=== PATIENT | male | born 1985 | race Caucasian/White ===

== ENCOUNTER 2019-07-30 17:53 | Inpatient (IN) ==
--- NOTE | 2019-07-30 18:19 | Emergency Department Note ---
Impression & Plan Homicidal ideation, Suicidal ideation ED Provider Note NAME: ZAHIDA CALIXTO AGE: 34 SEX: M : 1985 ARRIVES VIA: Ambulance INFORMANT: [Patient][ems, nursing] ED PROVIDER(S): [Balaji Ward MD] CHIEF COMPLAINT: Homicidal HISTORY OF PRESENT ILLNESS: The patient is a 34-year-old male with a mental health history. He admits he has not taken any of his meds in around 6 months or so since the office in [facility]. The patient does have a case management director for his psychiatric issues. The patient states that today, he posted on Facebook that he was looki ng for a gun. He wants to kill a friend that he is very mad at. He also states he is thinking about killing himself because, he was just told he has bedbugs and he has to throw out a lot of his belongings. The patient admits that he was suicidal once before many years ago, he states that he was never hospitalized from a psychiatric standpoint. The patient states that there have been no other stressors that he can think of. There has been no cough or cold or congestion, no urinary complaints. The patient states that his medical health is good. The patient was brought by EMS and police, apparently his aunt saw the post on Facebook and called. The patient was seen by the mobile psychiatry services as an outpatient and apparently, hospitalization was felt warranted. Of note, the patient is currently voluntary. REVIEW OF SYSTEMS: See HPI for pertinent positives and negatives. A total of ten systems were reviewed and were otherwise negative. PMHx/PSHx: See Below SOCIAL HISTORY: See Below. PHYSICAL EXAM: GENERAL: Patient is in no acute distress. HEENT: No acute trauma, normocephalic atraumatic, mucous membranes moist, no nasal congestion, no scleral icterus. NECK: No stridor, no adenopathy, no meningismus, trachea is midline. LUNGS: Clear to auscultation bilaterally, no wheeze, no rhonchi, breath sounds equal. HEART: Without murmurs gallops or rubs, regular rate and rhythm. ABDOMEN: Soft, nontender, bowel sounds positive, no hernias, no peritonitis. EXTREMITIES: No cyanosis or edema, full range of motion of all the joints without pain or difficulty, no signs for acute trauma. NEUROLOGIC: Oriented x 3, no acute motor or sensory deficits, no focal weakness. SKIN: No rash, no jaundice, no diaphoresis. Psychiatric: Cooperative, voluntary, admits to suicidal homicidal ideation. Admits to asking for a gun on Facebook earlier. DIFFERENTIAL DIAGNOSIS: Mood disorder, infection, hypoglycemia, suicidal, homicidal, electrolyte abnormalities, cardiac sources, intracerebral event, toxicologic, trauma, neurologic, as well as other pathologies. EMERGENCY DEPARTMENT COURSE/PROCEDURES: MEDICAL DECISION MAKING: There is no leukocytosis or concerning anemia. No significant electrolyte abnormality or kidney failure. There was no liver enzyme elevation. The patien t appeared to be in a euthyroid state. Urinalysis did not show infection. Aspirin, Tylenol and alcohol levels were undetectable. Urine tox was negative. On exam, the patient was cooperative. He did admit to asking for a gun earlier. He admits that he was feeling suicidal and homicidal. The patient was felt medically clear. He was seen by psychiatry case management. The patient has done well here in the ED. He has remained cooperative. He has remained voluntary. He was seen by our psychiatry services, 3 S. He has been accepted to their floor as a voluntary psychiatric admission. 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 Beliefs That Will Affect Care: None Feels Safe at Home: Yes Smoking Status: Never smoker Allergies Allergies Allergy/AdvReac Type Severity Reaction Status Date / Time No Known Allergies Allergy Unverified 07/30/19 18:29 Home Meds Home Medications Medication Instructions Recorded Confirmed No Known Home Medications 07/30/19 07/30/19 Results & Data (ED) Vital Signs Vital Signs - 24 hr 07/30/19 18:17 Temperature 36.4 C L Temperature Source Oral Pulse Rate 80 Respiratory Rate 18 Respiratory Effort / Characteristics Non-Labored Respiratory Depth Normal Respiratory Pattern Regular Blood Pressure 132/88 Blood Pressure Mean 102 Blood Pressure Position Sitting Pulse Oximetry 96 Oxygen Delivery Method Room Air Sepsis Recent Fever Within 48 Hours No Sepsis New/Unexplained Change in Mental Status No Sepsis Action Taken by Nursing No Action Required Home Medications Current Medication List: was personally reviewed by me Laboratory Data Attestation: I reviewed the patient's lab results. Result diagrams: 07/30/19 18:29 07/30/19 18:29 Lab Results 07/30/19 07/30/19 07/30/19 Range/Units 18:15 18:15 18:29 WBC 6.11 (4.8-10.8) K/uL RBC 4.89 (4.7-6.1) M/uL Hgb 14.1 (14.0-18.0) g/dL Hct 40.2 L (42-52) % MCV 82.2 (80-100) fL MCH 28.8 (25-34) pg MCHC 35.1 (32-36) g/dL RDW Std Deviation 37.8 (36.4-46.3) fL RDW Coeff of Bakari 12.6 (11.5-14.5) % Plt Count 227 (130-400) K/uL MPV 10.6 H (7.4-10.4) fL Immature Gran % (Auto) 0.0 % Neut % (Auto) 67.3 % Lymph % (Auto) 25.4 % [place] % (Auto) 6.5 % Eos % (Auto) 0.5 % Baso % (Auto) 0.3 % Immature Gran # (Auto) 0.00 (0.00-0.02) K/uL Neut # (Auto) 4.11 (1.4-6.5) K/uL Lymph # (Auto) 1.55 (1.2-3.4) K/uL [place] # (Auto) 0.40 (0.11-0.59) K/uL Eos # (Auto) 0.03 (0-0.5) K/uL Baso # (Auto) 0.02 (0-0.2) K/uL Sodium (136-145) mmol/L Potassium (3.5-5.1) mmol/L Chloride (98-107) mmol/L Carbon Dioxide (21-32) mmol/L Anion Gap (3-11) BUN (7-18) mg/dl Creatinine (0.6-1.4) mg/dl Est Cr Clr Drug Dosing ml/min Est GFR ( Amer) Est GFR (Non-Af Amer) BUN/Creatinine Ratio (10-20) Glucose (70-99) mg/dl Calcium (8.5-10.1) mg/dl Total Bilirubin (0.2-1) mg/dl AST (15-37) U/L ALT (12-78) U/L Alkaline Phosphatase (45-117) U/L Total Protein (6.4-8.2) gm/dl Albumin (3.4-5.0) gm/dl Globulin (2.5-4.0) gm/dl Albumin/Globulin Ratio (0.9-2) TSH (0.300-4.500) uIu/ml Urine Color Yellow Urine Appearance Clear (Clear) Urine pH 7.0 (4.5-7.5) Ur Specific [place] 1.016 (1.000-1.030) Urine Protein Negative (Negative) Urine Glucose (UA) Negative (Negative) Urine Ketones Negative (Negative) Urine Blood Negative (Negative) Urine Nitrite Negative (Negative) Urine Bilirubin Negative (Negative) Urine Urobilinogen Negative (Negative) Ur Leukocyte Esterase Negative (Negative) Salicylates (2.8-20) mg/dl Urine Opiates Screen Neg (Neg) Ur Methadone, Qual Neg (Neg) Acetaminophen (10-30) ug/ml Urine Barbiturates Neg (Neg) Ur Phencyclidine (PCP) Neg (Neg) U Amphetamin/Meth Scrn Neg (Neg) MDMA (Ecstasy) Screen Neg (Neg) U Benzodiazepines Scrn Neg (Neg) Ur Cocaine Metabolite Neg (Neg) U Marijuana (THC) Screen Neg (Neg) Ethyl Alcohol mg/dL (0-3) mg/dl 07/30/19 07/30/19 07/30/19 Range/Units 18:29 18:29 18:29 WBC (4.8-10.8) K/uL RBC (4.7-6.1) M/uL Hgb (14.0-18.0) g/dL Hct (42-52) % MCV (80-100) fL MCH (25-34) pg MCHC (32-36) g/dL RDW Std Deviation (36.4-46.3) fL RDW Coeff of Bakari (11.5-14.5) % Plt Count (130-400) K/uL MPV (7.4-10.4) fL Immature Gran % (Auto) % Neut % (Auto) % Lymph % (Auto) % [place] % (Auto) % Eos % (Auto) % Baso % (Auto) % Immature Gran # (Auto) (0.00-0.02) K/uL Neut # (Auto) (1.4-6.5) K/uL Lymph # (Auto) (1.2-3.4) K/uL [place] # (Auto) (0.11-0.59) K/uL Eos # (Auto) (0-0.5) K/uL Baso # (Auto) (0-0.2) K/uL Sodium 138 (136-145) mmol/L Potassium 3.5 (3.5-5.1) mmol/L Chloride 104 (98-107) mmol/L Carbon Dioxide 29 (21-32) mmol/L Anion Gap 5.0 (3-11) BUN 11 (7-18) mg/dl Creatinine 1.06 (0.6-1.4) mg/dl Est Cr Clr Drug Dosing 75.1 ml/min Est GFR ( Amer) 104.9 Est GFR (Non-Af Amer) 90.5 BUN/Creatinine Ratio 10.8 (10-20) Glucose 106 H (70-99) mg/dl Calcium 8.7 (8.5-10.1) mg/dl Total Bilirubin 0.3 (0.2-1) mg/dl AST 16 (15-37) U/L ALT 21 (12-78) U/L Alkaline Phosphatase 50 (45-117) U/L Total Protein 7.8 (6.4-8.2) gm/dl Albumin 4.1 (3.4-5.0) gm/dl Globulin 3.7 (2.5-4.0) gm/dl Albumin/Globulin Ratio 1.1 (0.9-2) TSH 0.961 (0.300-4.500) uIu/ml Urine Color Urine Appearance (Clear) Urine pH (4.5-7.5) Ur Specific [place] (1.000-1.030) Urine Protein (Negative) Urine Glucose (UA) (Negative) Urine Ketones (Negative) Urine Blood (Negative) Urine Nitrite (Negative) Urine Bilirubin (Negative) Urine Urobilinogen (Negative) Ur Leukocyte Esterase (Negative) Salicylates < 1.7 L (2.8-20) mg/dl Urine Opiates Screen (Neg) Ur Methadone, Qual (Neg) Acetaminophen < 2 L (10-30) ug/ml Urine Barbiturates (Neg) Ur Phencyclidine (PCP) (Neg) U Amphetamin/Meth Scrn (Neg) MDMA (Ecstasy) Screen (Neg) U Benzodiazepines Scrn (Neg) Ur Cocaine Metabolite (Neg) U Marijuana (THC) Screen (Neg) Ethyl Alcohol mg/dL < 3.0 (0-3) mg/dl Blood Pressure Blood Pressure Findings: Elevated blood pressure Blood Pressure Disposition: Referred to patients primary care provider Discharge Plan Visit Data *Final* Discharge Date/Time: 07/30/19 22:35 Chief Complaint: Mental Health Evaluation Stated Complaint: feeling homicidal ED Provider: Balaji Ward Discharge Problem: Homicidal ideation, Suicidal ideation Patient Disposition: Admitted As Inpatient Condition: Good Discharge Instructions Interventions: ED Discharge Assessment Last Done: 07/30/19 22:35
[2019-07-30 18:35] LABS: Appearance Urine Clear (Clear); Bilirubin Urine Negative (Negative); Blood Urine Negative (Negative); Color Urine Yellow; Glucose Urine UA Negative (Negative); Ketones Urine Negative (Negative); Leukocyte Esterase Urine Negative (Negative); Nitrite Urine Negative (Negative); Protein Urine Negative (Negative); Specific Gravity Urine 1.016 (1.000-1.030); Urobilinogen Urine Negative (Negative)
[2019-07-30 18:39] LABS: Basophils # (auto) 0.02 K/uL (0-0.2); Basophils % (auto) 0.3 %; Eosinophils # (auto) 0.03 K/uL (0-0.5); Eosinophils % (auto) 0.5 %; Hematocrit (blood only) 40.2 % (42-52); Hemoglobin 14.1 g/dL (14.0-18.0); Lymphocytes # (auto) 1.55 K/uL (1.2-3.4); Lymphocytes % (auto) 25.4 %; Mean Corpuscular Hemoglobin 28.8 pg (25-34); Mean Corpuscular Hgb Conc 35.1 g/dL (32-36); Mean Corpuscular Volume 82.2 fL (80-100); Mean Platelet Volume 10.6 fL (7.4-10.4); Monocytes % (auto) 6.5 %; Neutrophils # (auto) 4.11 K/uL (1.4-6.5); Neutrophils % (auto) 67.3 %; Platelet Count 227 K/uL (130-400); RDW Coefficient of Variation 12.6 % (11.5-14.5); RDW Standard Deviation 37.8 fL (36.4-46.3); Red Blood Count 4.89 M/uL (4.7-6.1); White Blood Count 6.11 K/uL (4.8-10.8)
[2019-07-30 18:55] LABS: Albumin Level 4.1 gm/dl (3.4-5.0); BUN Creatinine Ratio 10.8 (10-20); Calcium 8.7 mg/dl (8.5-10.1); Creatinine Clr Calc Pharmacy 75.1 ml/min; Est GFR (African American) 104.9; Est GFR (Non-African American) 90.5; Potassium 3.5 mmol/L (3.5-5.1)
[2019-07-30 18:56] LABS: Amphetamines+Metham, Urine Neg (Neg); Barbiturates, Urine Neg (Neg); Benzodiazepine, Urine Neg (Neg); Cocaine, Urine Neg (Neg); MDMA (Ecstacy), Urine Neg (Neg); Methadone, Urine Neg (Neg); Opiate, Urine Neg (Neg); Phencyclidine, Urine Neg (Neg)
[2019-07-30 19:05] LABS: Albumin Globulin Ratio 1.1 (0.9-2); Bilirubin,Total 0.3 mg/dl (0.2-1); Globulin 3.7 gm/dl (2.5-4.0); Thyroid Stimulating Hormone 0.961 uIu/ml (0.300-4.500); Total Protein 7.8 gm/dl (6.4-8.2)
[2019-07-30 19:37] LABS: Acetaminophen < 2 ug/ml (10-30); Salicylate < 1.7 mg/dl (2.8-20)
[2019-07-31] MEDS ORDERED: BISMUTH SUBSALICYLATE PER ML OMNICELL CHARGE PO PRN (00:07)
[2019-07-31] MEDS ORDERED: SODIUM CHLORIDE 0.65% NA SOLN 45 ML (OCEAN) PRN (00:07)
[2019-07-31] MEDS ORDERED: ALUMINUM/MAGNESIUM SUSP 30 ML UDC PO PRN (00:07)
[2019-07-31] MEDS ORDERED: MAGNESIUM HYDROXIDE SUSP 30 ML UDC PO PRN (00:07)
[2019-07-31] MEDS ORDERED: ACETAMINOPHEN 325 MG TAB PO PRN (00:07)
[2019-07-31] MEDS: SERTRALINE HCL 50 MG TABLET PO SCH (10:29)
--- NOTE | 2019-07-31 15:24 | History & Physical ---
Date of Service July 31, 2019 Impression / Recommendations Impression 34-year-old single male with history of mild intellectual disability and likely history of mood/anxiety disorder previously treated with low-dose Zoloft by outpatient psychiatrist who presents with homicidal ideation towards estranged female friend and suicidal ideation associated with emotional distress regarding bedbugs infestation at home. The precipitant for homicidal ideation remains a little unclear based on patient's self-report so far however it appears possible that the patient has become rather preoccupied by the absence of his friend. He requires a period of monitoring and secured environment for his safety as well as the safety of the individual targeted in his homicidal ideation. He would likely benefit from reinitiation of antidepressant pharmacotherapy. (1) Homicidal ideation: (2) Suicidal ideation: (3) Unspecified mood [affective] disorder: 07/31/2019 -Patient admitted on a voluntary status to the behavioral health unit for safety in the setting of expressed homicidal ideation with target and suicidal ideation -We will continue to expand database and coordinate with outpatient resources including case management as able -Watch for evidence of obsessive preoccupation with estranged female friend. -We will restart former dose of Zoloft at 50 mg p.o. daily for mood and potentially some off label impulse control benefit as well. He reports this agent was previously well tolerated. Common risks and benefits reviewed -All requirements for bedbug prevention were completed in the ED Inventory Assets Strengths: Accepting of help, able to communicate a choice Needs: Provision for safety, medication management Risk Factors Assessment Male: Yes : Yes Do You Have Access To A Gun?: No Health Problems: No Mental Health Diagnoses: Yes Substance Use Disorders: No Previous Attempt: Yes Family History of Suicide: No Previous Psychiatric Hospitalization: No Hopelessness: No Smoker: No Protective Factors Assessment Adventist Beliefs: Yes : No Responsible for Young Children: No Employed: Yes ([employer] - 8 years) Psychiatric History Identifying Data ZAHIDA CALIXTO is a 34-year-old M who currently lives in [place] with his aunt, has a history of ID, and was admitted on 07/30/19 22:24 on a 201 voluntary commitment for homicidal and then expressed suicidal ideation. Chief Complaint " I posted on Facebook that I wanted to hurt my friend". History of Present Illness Patient admitted through hospital ER last evening. Indicated that he had posted on Facebook that he was looking for a gun to kill his friend that he was angry with. Apparently his aunt called emergency services after reading his post on the Internet. He was brought in by police. He was cooperative. Reported that he had not been taking any of his medications for about 6 months since [facility] office closed. Medical work-up was negative and he was medically cleared in the ER for behavioral health involuntary admission. Review of ER mental health showcase maker note indicates patient admitted to posting to Facebook request to borrow a gun, admitted to homicidal thoughts toward his friend, Cris Merida, "because she is not talking to me like she used to. It is like she hates me." At that time patient indicated that he was also experiencing suicidal ideation without a specific plan with onset of suicidal thoughts beginning the same day after he was told by his aunt that he would have to dispose of some of his belongings due to bedbugs in the home. Patient acknowledged a distant history of self hanging attempt. He denied a history of violence. Reported he had previously been prescribed Zoloft and another un recalled psychiatric indication by his outpatient psychiatric provider but had stopped taking the medications when the outpatient clinic closed several months ago. He stated that he had access to the medication but was unable to identify a reason that he stopped it. He was in the process of pursuing outpatient psychiatric care through [facility]. He denied drug or alcohol use. As patient identified a specific target of expressed homicidal ideation, duty to warn was addressed while patient was in the ER. On interview patient provides similar information which appears fairly consistent with history obtained in ER however I do find that he is not consistent and reporting at one point that he felt unlikely to have hurt his friend had he not come to the hospital but later indicating that he might have been a risk to her as well as himself. Explored nature of their friendship and he reports to your friendship however has not spoken with her since last November. States they had a fight however he cannot remember the reason for their disagreement. Describes her as a special person but denies romantic desires. Denies jealousy. States he just wants to talk to her "like she used to." Again denies a history of violence. Describes possible obsessive or ruminative thinking about his friend. He denies major changes in his habits or routines. Has been keeping his shifts at [employer] where he works 40 hours/week. Denies crying spells, changes in appetite, loss of interest. Spends leisure time playing video games. Denies panic attacks, symptoms of OCD, jessenia, hallucinations, or unusual or unwanted thoughts. He does report that his grandmother in April which was said for him. He expresses interest in restarting the Zoloft as he felt that it was helpful for his mood in the past. He again cannot identify a reason for discontinuation other than that his follow-up was discontinued when the clinic was closed. Past Psychiatric History Current Psychiatric Diagnosis: Depression, ID Outpatient Services: Previously followed with Dr. Vaughan at [facility]. Has also participated in outpatient therapy at [facility]. project manager entertainment and media, Nannette Previous Psych Admissions: Denies Do You Have Access To A Gun?: No History of Previous Suicide Attempt: Yes Describe Attempts in the Past: Hx of thoughts to hang self "years back." Past Medication Trials: Zoloft, recalls good effect Trazodone for sleep Past Head Trauma/Neuro History History of Concussion/Seizure: No Allergies Allergy/AdvReac Type Severity Reaction Status Date / Time No Known Allergies Allergy Unverified 07/30/19 18:29 Home Medications Home Medications Medication Instructions Recorded Confirmed Type No Known Home Medications 07/30/19 07/30/19 History Family History Family History of: Doesn't Know Family Mental Health History Comment: Patient unsure but denies known family history of mental health issues Alcohol History Hx of Alcohol Use Over the Past 12 Months: No AUDIT Total Score: 0 Smoking Use Have You Smoked or Used Tobacco Products in the Last 30 Days: No Smoking Status: Never smoker Substance History Hx of Prescription Med Misuse Over the Past 12 Months: No Hx of Over the Counter Med Misuse Over the Past 12 Months: No Hx of Inhalent Misuse Over the Past 12 Months: No Hx of Organic Substance Use Over the Past 12 Months: No Hx of Illegal Substances/Street Drug Use Over Past 12 Months: No Problems as a Result of Past Substance Use: None Identified Personal History Living Arrangements: Apartment Living Arrangements Comments: Patient lives in an apartment with his aunt Highest Grade Completed: High School Graduate (Special ed. 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[email or web address]) Marital Status: Single Number Of Children: 0 Beliefs That Will Affect Care: None Hx Legal Problems: No Hx Traumatic Life Events: No Patient History Medical History Suicidal ideation (Acute) Family History (Updated 07/31/19 @ 15:12 by Wesley Whal MD) Other Heart disease Social History Preferred Language: Sudanese Communication Ability: Effective Drive Man Required: No Beliefs That Will Affect Care: None Feels Safe at Home: Yes Smoking Status: Never smoker Review of Systems Psychiatric: as per Subjective / HPI 10 point review of systems otherwise negative except as per HPI Physical Exam Psychiatric: Orientation: alert and cooperative Apperance: + disheveled Eye Contact: good eye contact Motor Behavior: steady gait and station and no abnormal motor movements Speech: normal rate/rhythm/volume of speech Use of language is unsophisticated Affect: euthymic affect Smiles broadly at times. Mood: + depressed mood Thought Process: linear/logical thought process ([place]) Thought Content: + preoccupation (Female friend); not paranoid, no delusions and no thought insertion Suicidal Thoughts: denies suicidal plan and denies suicidal intent; + reports suicidal thoughts Admits to suicidal impulses at time of admission but denies specific plan or intent for self-harm and able to contract for safety on the unit Homicidal Thoughts: + reports homicidal thoughts and + reports homicidal plan Patient expresses variable homicidal intent Hallucinations: no auditory hallucinations, no visual hallucinations and no tactile hallucinations Cognition: recent memory grossly intact Estimated Intelligence: + below average estimated intelligence Insight: + limited insight Judgement: + limited judgement Physical exam performed in the ER by Dr. Ward reviewed and accepted for medical clearance to the behavioral health unit. Vital Signs (Past 24 Hours): Last Vital Signs Temp 36.4 C L 07/31/19 06:00 Pulse 73 07/31/19 06:00 Resp 16 07/31/19 06:00 BP 126/72 07/31/19 06:00 Pulse Ox 98 07/30/19 23:33 Results & Data ([facility]) Laboratory Results Laboratory Results - last 24 hr 07/30/19 07/30/19 07/30/19 18:15 18:15 18:29 WBC 6.11 RBC 4.89 Hgb 14.1 Hct 40.2 L MCV 82.2 MCH 28.8 MCHC 35.1 RDW Std Deviation 37.8 RDW Coeff of Bakari 12.6 Plt Count 227 MPV 10.6 H Immature Gran % (Auto) 0.0 Neut % (Auto) 67.3 Lymph % (Auto) 25.4 [place] % (Auto) 6.5 Eos % (Auto) 0.5 Baso % (Auto) 0.3 Immature Gran # (Auto) 0.00 Neut # (Auto) 4.11 Lymph # (Auto) 1.55 [place] # (Auto) 0.40 Eos # (Auto) 0.03 Baso # (Auto) 0.02 Sodium Potassium Chloride Carbon Dioxide Anion Gap BUN Creatinine Est Cr Clr Drug Dosing Est GFR ( Amer) Est GFR (Non-Af Amer) BUN/Creatinine Ratio Glucose Calcium Total Bilirubin AST ALT Alkaline Phosphatase Total Protein Albumin Globulin Albumin/Globulin Ratio TSH Urine Color Yellow Urine Appearance Clear Urine pH 7.0 Ur Specific [place] 1.016 Urine Protein Negative Urine Glucose (UA) Negative Urine Ketones Negative Urine Blood Negative Urine Nitrite Negative Urine Bilirubin Negative Urine Urobilinogen Negative Ur Leukocyte Esterase Negative Salicylates Urine Opiates Screen Neg Ur Methadone, Qual Neg Acetaminophen Urine Barbiturates Neg Ur Phencyclidine (PCP) Neg U Amphetamin/Meth Scrn Neg MDMA (Ecstasy) Screen Neg U Benzodiazepines Scrn Neg Ur Cocaine Metabolite Neg U Marijuana (THC) Screen Neg Ethyl Alcohol mg/dL 07/30/19 07/30/19 07/30/19 18:29 18:29 18:29 WBC RBC Hgb Hct MCV MCH MCHC RDW Std Deviation RDW Coeff of [place] Plt Count MPV Immature Gran % (Auto) Neut % (Auto) Lymph % (Auto) [place] % (Auto) Eos % (Auto) Baso % (Auto) Immature Gran # (Auto) Neut # (Auto) Lymph # (Auto) [place] # (Auto) Eos # (Auto) Baso # (Auto) Sodium 138 Potassium 3.5 Chloride 104 Carbon Dioxide 29 Anion Gap 5.0 BUN 11 Creatinine 1.06 Est Cr Clr Drug Dosing 75.1 Est GFR ( Amer) 104.9 Est GFR (Non-Af Amer) 90.5 BUN/Creatinine Ratio 10.8 Glucose 106 H Calcium 8.7 Total Bilirubin 0.3 AST 16 ALT 21 Alkaline Phosphatase 50 Total Protein 7.8 Albumin 4.1 Globulin 3.7 Albumin/Globulin Ratio 1.1 TSH 0.961 Urine Color Urine Appearance Urine pH Ur Specific [place] Urine Protein Urine Glucose (UA) Urine Ketones Urine Blood Urine Nitrite Urine Bilirubin Urine Urobilinogen Ur Leukocyte Esterase Salicylates < 1.7 L Urine Opiates Screen Ur Methadone, Qual Acetaminophen < 2 L Urine Barbiturates Ur Phencyclidine (PCP) U Amphetamin/Meth Scrn MDMA (Ecstasy) Screen U Benzodiazepines Scrn Ur Cocaine Metabolite U Marijuana (THC) Screen Ethyl Alcohol mg/dL < 3.0 Current Inpatient Medications Current Inpatient Medications: Current Inpatient Medications Acetaminophen (Tylenol) 650 mg PO Q4H PRN PRN Reason: Headache or Minor Fever Stop: 08/30/19 00:06 Al Hydrox/Mg Hydrox/Simethicone (Maalox) 30 ml PO Q4H PRN PRN Reason: GI Upset Stop: 08/30/19 00:06 Bismuth Subsalicylate (Kaopectate) 15 ml PO PRN PRN PRN Reason: Loose Stool Stop: 08/30/19 00:06 Hydroxyzine HCl (Vistaril) 50 mg PO HSZ PRN PRN Reason: Insomnia Stop: 08/30/19 00:06 Hydroxyzine HCl (Vistaril) 25 mg PO Q4H PRN PRN Reason: Anxiety Stop: 08/30/19 00:06 Magnesium Hydroxide (Milk Of Magnesia) 30 ml PO DAILY PRN PRN Reason: Constipation Stop: 08/30/19 00:06 Sertraline HCl (Zoloft) 50 mg PO QAM NAREN Stop: 08/30/19 10:14 Last Admin: 07/31/19 10:29 Dose: 50 mg Documented by: Sodium Chloride (Turner Nasal) 1 - 2 sprays NA PRN PRN PRN Reason: Nasal Dryness/Congestion Stop: 08/30/19 00:06
[2019-08-01] MEDS: SERTRALINE HCL 50 MG TABLET PO SCH (08:02)
--- NOTE | 2019-08-01 11:49 | Psychiatric Progress Note ---
Date of Service August 01, 2019 Impression / Recommendations Impression 34-year-old single male with history of mild intellectual disability and likely history of mood/anxiety disorder previously treated with low-dose Zoloft by outpatient psychiatrist who presents with homicidal ideation towards estranged female friend and suicidal ideation associated with emotional distress regarding bedbugs infestation at home. The precipitant for homicidal ideation remains a little unclear based on patient's self-report so far however it appears possible that the patient has become rather preoccupied by the absence of his friend. He requires a period of monitoring and secured environment for his safety as well as the safety of the individual targeted in his homicidal ideation. He would likely benefit from reinitiation of antidepressant pharmacotherapy. (1) Homicidal ideation: 07/31 -Denies continued homicidal ideation however his ability to self reflect, problem solve, and control impulses requires some continued monitoring before we can safely consider discharge (2) Suicidal ideation: 07/31 -Denies ongoing suicidal ideation (3) Unspecified mood [affective] disorder: 07/31/2019 -Patient admitted on a voluntary status to the behavioral health unit for safety in the setting of expressed homicidal ideation with target and suicidal ideation -We will continue to expand database and coordinate with outpatient resources including case management as able -Watch for evidence of obsessive preoccupation with estranged female friend. -We will restart former dose of Zoloft at 50 mg p.o. daily for mood and potentially some off label impulse control benefit as well. He reports this agent was previously well tolerated. Common risks and benefits reviewed -All requirements for bedbug prevention were completed in the ED 07/21 -Has been restarted on former dose of Zoloft without side effects so far. Inventory Assets Strengths: Accepting of help, able to communicate a choice Needs: Provision for safety, medication management Risk Factors Assessment Male: Yes : Yes Do You Have Access To A Gun?: No Health Problems: No Mental Health Diagnoses: Yes Substance Use Disorders: No Previous Attempt: Yes Family History of Suicide: No Previous Psychiatric Hospitalization: No Hopelessness: No Smoker: No Protective Factors Assessment Anabaptism Beliefs: Yes : No Responsible for Young Children: No Employed: Yes ([employer] - 8 years) Interval History Chief Complaint " I do not want to hurt her". 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 Meal Information Percent Meal Consumed - Breakfast: 100 Percent Meal Consumed - Lunch: 100 Percent Meal Consumed - Dinner: 100 Subjective Subjective Patient was seen & assessed and interval progress reviewed with treatment team. Per staff patient has been pleasant and cooperative on unit. Participating in unit programming. Reports this is been helpful. Describes his mood as good this morning and denies continued homicidal or suicidal ideation. He states that he realizes that he does not want to hurt his friend. Patient had a family meeting with his aunt yesterday who reportedly was very supportive. She indicated that the patient has fancied that he had a romantic relationship with this female friend however trigger for acute anger remains unclear. He was restarted on Zoloft yesterday and reports no side effects today. Slept well last evening. Reports he has a yearly checkup scheduled for tomorrow which will need to be rescheduled. Physical Exam Psychiatric Orientation: alert and cooperative Apperance: appropriately dressed Eye Contact: good eye contact Motor Behavior: steady gait and station; no psychomotor agitation Speech: normal rate/rhythm/volume of speech language is unsophisticated Affect: euthymic affect (smiles easily) Mood: no depressed mood and no angry mood Thought Process: linear/logical thought process ([place]) Thought Content: no hopelessness and no self deprecation Suicidal Thoughts: denies suicidal thoughts Homicidal Thoughts: denies homicidal thoughts Hallucinations: no auditory hallucinations, no visual hallucinations and no tactile hallucinations Cognition: recent memory grossly intact Estimated Intelligence: + below average estimated intelligence Insight: + limited insight Judgement: + limited judgement Vital Signs (Past 24 Hours) Last Vital Signs Temp 36.4 C L 08/01/19 06:35 Pulse 76 08/01/19 06:36 Resp 18 08/01/19 06:35 BP 131/77 08/01/19 06:36 Pulse Ox 98 07/30/19 23:33 Results & Data ([facility]) Current Inpatient Medications Current Inpatient Medications: Current Inpatient Medications Acetaminophen (Tylenol) 650 mg PO Q4H PRN PRN Reason: Headache or Minor Fever Stop: 08/30/19 00:06 Al Hydrox/Mg Hydrox/Simethicone (Maalox) 30 ml PO Q4H PRN PRN Reason: GI Upset Stop: 08/30/19 00:06 Bismuth Subsalicylate (Kaopectate) 15 ml PO PRN PRN PRN Reason: Loose Stool Stop: 08/30/19 00:06 Hydroxyzine HCl (Vistaril) 50 mg PO HSZ PRN PRN Reason: Insomnia Stop: 08/30/19 00:06 Hydroxyzine HCl (Vistaril) 25 mg PO Q4H PRN PRN Reason: Anxiety Stop: 08/30/19 00:06 Magnesium Hydroxide (Milk Of Magnesia) 30 ml PO DAILY PRN PRN Reason: Constipation Stop: 08/30/19 00:06 Sertraline HCl (Zoloft) 50 mg PO QAM NAREN Stop: 08/30/19 10:14 Last Admin: 08/01/19 08:02 Dose: 50 mg Documented by: Sodium Chloride ([place] Nasal) 1 - 2 sprays NA PRN PRN PRN Reason: Nasal Dryness/Congestion Stop: 08/30/19 00:06 Mental Health & Subst Abuse Tx Therapist Name of Therapist: Transitioning to [facility] - awaiting insurance authorization. Manager Rn Case Name of Manager Rn Case: None
[2019-08-02] MEDS: SERTRALINE HCL 50 MG TABLET PO SCH (08:34)
--- NOTE | 2019-08-02 09:15 | Psychiatric Progress Note ---
Date of Service August 02, 2019 Impression / Recommendations Impression 34-year-old single male with mild intellectual disability and likely history of mood/anxiety disorder previously treated with low-dose Zoloft by outpatient psychiatrist who presents with homicidal ideation towards estranged female friend and suicidal ideation associated with emotional distress regarding bedbugs infestation at home. The precipitant for homicidal ideation remains a little unclear based on patient's self-report so far however it appears possible that the patient has become rather preoccupied by the absence of his friend. He requires a period of monitoring and secured environment for his safety as well as the safety of the individual targeted in his homicidal ideation. He would likely benefit from reinitiation of antidepressant pharmacotherapy. (1) Homicidal ideation: 07/31 -Denies continued homicidal ideation however his ability to self reflect, problem solve, and control impulses requires some continued monitoring before we can safely consider discharge (2) Suicidal ideation: 07/31 -Denies ongoing suicidal ideation (3) Unspecified mood [affective] disorder: 07/31/2019 -Patient admitted on a voluntary status to the behavioral health unit for safety in the setting of expressed homicidal ideation with target and suicidal ideation -We will continue to expand database and coordinate with outpatient resources including case management as able -Watch for evidence of obsessive preoccupation with estranged female friend. -We will restart former dose of Zoloft at 50 mg p.o. daily for mood and potentially some off label impulse control benefit as well. He reports this agent was previously well tolerated. Common risks and benefits reviewed -All requirements for bedbug prevention were completed in the ED 07/31 -Has been restarted on former dose of Zoloft without side effects so far. 08/01 -Family meeting with aunt, whom he lives with, held 07/30. -Coordinate with his case monitor, and will need referral for psychiatric care and therapy, as he fell out of treatment when [facility] closed. -Continue sertraline 50mg. Inventory Assets Strengths: Accepting of help, able to communicate a choice Needs: Provision for safety, medication management Risk Factors Assessment Male: Yes : Yes Do You Have Access To A Gun?: No Health Problems: No Mental Health Diagnoses: Yes Substance Use Disorders: No Previous Attempt: Yes Family History of Suicide: No Previous Psychiatric Hospitalization: No Hopelessness: No Smoker: No Protective Factors Assessment Hoahaoism Beliefs: Yes : No Responsible for Young Children: No Employed: Yes ([employer] - 8 years) Supportive Family: Yes Interval History Identifying Information ZAHIDA CALIXTO is a 34-year-old M who currently lives in [place] with his aunt, has a history of ID, and was admitted on 07/30/19 22:24 on a 201 voluntary commitment for homicidal and suicidal ideation. Chief Complaint " Pretty good". 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 Meal Information Percent Meal Consumed - Breakfast: 100 Percent Meal Consumed - Lunch: 100 Percent Meal Consumed - Dinner: 100 Subjective Subjective Patient was seen & assessed and interval progress reviewed with treatment team. Staff report he has been attending groups, with calm and appropriate behavior. He laughs inappropriately at times, and is interacting with peers. On my assessment, he was seen in the activity room, where he is working on a puzzle. He states that his mood has improved significantly since admission, which he attributes to "getting back on my meds." He denies any side effects to the sertraline, and states that he only went off of it because he did not get tr ansitioned to new clinicians when [facility] closed. He says it is helping to talk to others and "keep busy," and that he feels safe here. He states that he feels bad about his homicidal thoughts "especially since it was towards my friend," and says that he has not talked to that individual in about 8 months, and does not plan to see her in the future. He does not think he would act on these thoughts, and denies a history of violence towards others. He states that when feeling down or suicidal, it helps to be distracted, and likes playing video games or talking to friends. He reports good sleep and appetite, and is willing to work with the hospital social worker to get back into outpatient treatment. Physical Exam Psychiatric Orientation: alert and cooperative Apperance: appropriately dressed and appeared stated age Eye Contact: + fair eye contact Motor Behavior: steady gait and station and no abnormal motor movements Speech: normal rate/rhythm/volume of speech Affect: euthymic affect and mood congruent with affect "Pretty good." Thought Process: goal directed thought process and + concrete thought process Thought Content: reality based without delusions Suicidal Thoughts: denies suicidal thoughts Homicidal Thoughts: denies homicidal thoughts Hallucinations: no auditory hallucinations and no visual hallucinations Cognition: recent memory grossly intact, attention grossly intact and language grossly intact Insight: + limited insight Judgement: + limited judgement Vital Signs (Past 24 Hours) Last Vital Signs Temp 36.3 C L 08/02/19 06:51 Pulse 62 08/02/19 06:52 Resp 18 08/02/19 06:51 BP 122/72 08/02/19 06:52 Pulse Ox 98 07/30/19 23:33 Results & Data ([facility]) Current Inpatient Medications Current Inpatient Medications: Current Inpatient Medications Acetaminophen (Tylenol) 650 mg PO Q4H PRN PRN Reason: Headache or Minor Fever Stop: 08/30/19 00:06 Al Hydrox/Mg Hydrox/Simethicone (Maalox) 30 ml PO Q4H PRN PRN Reason: GI Upset Stop: 08/30/19 00:06 Bismuth Subsalicylate (Kaopectate) 15 ml PO PRN PRN PRN Reason: Loose Stool Stop: 08/30/19 00:06 Hydroxyzine HCl (Vistaril) 50 mg PO HSZ PRN PRN Reason: Insomnia Stop: 08/30/19 00:06 Hydroxyzine HCl (Vistaril) 25 mg PO Q4H PRN PRN Reason: Anxiety Stop: 08/30/19 00:06 Magnesium Hydroxide (Milk Of Magnesia) 30 ml PO DAILY PRN PRN Reason: Constipation Stop: 08/30/19 00:06 Sertraline HCl (Zoloft) 50 mg PO QAM NAREN Stop: 08/30/19 10:14 Last Admin: 08/02/19 08:34 Dose: 50 mg Documented by: Sodium Chloride ([place] Nasal) 1 - 2 sprays NA PRN PRN PRN Reason: Nasal Dryness/Congestion Stop: 08/30/19 00:06 Mental Health & Subst Abuse Tx Therapist Name of Therapist: Transitioning to [facility] - awaiting insurance authorization. Medical Communication Specialist Name of Medical Communication Specialist: None
[2019-08-03] MEDS: SERTRALINE HCL 50 MG TABLET PO SCH (07:50)
--- NOTE | 2019-08-03 09:15 | Psychiatric Progress Note ---
Date of Service August 03, 2019 Impression / Recommendations Impression 34-year-old single male with mild intellectual disability and likely history of mood/anxiety disorder previously treated with low-dose Zoloft by outpatient psychiatrist who presents with homicidal ideation towards estranged female friend and suicidal ideation associated with emotional distress regarding bedbugs infestation at home. The precipitant for homicidal ideation remains a little unclear based on patient's self-report so far however it appears possible that the patient has become rather preoccupied by the absence of his friend. He requires a period of monitoring and secured environment for his safety as well as the safety of the individual targeted in his homicidal ideation. Pt has been tolerating re-trial of sertraline and reporting improvement in mood. He has been consistently denying SI/HI, but still requires outpatient psychiatric appointments to be scheduled. Anticipate discharge tomorrow if improvement continues. (1) Homicidal ideation: 07/31 -Denies continued homicidal ideation however his ability to self reflect, problem solve, and control impulses requires some continued monitoring before we can safely consider discharge 08/02 - Continues to deny HI - documentation from ED suggests that duty to warn was completed prior to inpatient admission (2) Suicidal ideation: 07/31 -Denies ongoing suicidal ideation 08/02 - Continues to deny SI (3) Unspecified mood [affective] disorder: 07/31/2019 -Patient admitted on a voluntary status to the behavioral health unit for safety in the setting of expressed homicidal ideation with target and suicidal ideation -We will continue to expand database and coordinate with outpatient resources including case management as able -Watch for evidence of obsessive preoccupation with estranged female friend. -We will restart former dose of Zoloft at 50 mg p.o. daily for mood and potentially some off label impulse control benefit as well. He reports this agent was previously well tolerated. Common risks and benefits reviewed -All requirements for bedbug prevention were completed in the ED 07/31 -Has been restarted on former dose of Zoloft without side effects so far. 08/01 -Family meeting with aunt, whom he lives with, held 07/30. -Coordinate with his complex case manager, and will need referral for psychiatric care and therapy, as he fell out of treatment when [facility] closed. -Continue sertraline 50mg. 08/02 - Continue sertraline 50mg daily - Pt still requires outpatient psychiatry and therapy appointments. Awaiting call back to schedule. Will also coordinate with patient's outpatient complex case manager. - At this time, patient is appearing appropriate for discharge tomorrow Inventory Assets Strengths: Accepting of help, able to communicate a choice Needs: Provision for safety, medication management Risk Factors Assessment Male: Yes : Yes Do You Have Access To A Gun?: No Health Problems: No Mental Health Diagnoses: Yes Substance Use Disorders: No Previous Attempt: Yes Family History of Suicide: No Previous Psychiatric Hospitalization: No Hopelessness: No Smoker: No Protective Factors Assessment Protestant Beliefs: Yes : No Responsible for Young Children: No Employed: Yes ([employer] - 8 years) Supportive Family: Yes Interval History Identifying Information ZAHIDA CALIXTO is a 34-year-old M who currently lives in [place] with his aunt, has a history of ID, and was admitted on 07/30/19 22:24 on a 201 voluntary commitment for homicidal and suicidal ideation. Chief Complaint "I'm doing really good. How are you?" Review of Systems Notes Constitutional: denied Cardiovascular: denied Respiratory: denied Gastrointestinal: denied Neurological: denied Psychiatric: denies symptoms other than stated above Total of at least 10 systems reviewed, pertinent positives as above and in HPI. Sleep Information Total Hours of Sleep: 6.5 Sleep Comments: pt on q-15 minute checks Meal Information Percent Meal Consumed - Breakfast: 100 Percent Meal Consumed - Lunch: 100 Percent Meal Consumed - Dinner: 100 Subjective Subjective Patient was seen & assessed and interval progress reviewed with nursing and social work. Staff report the patient continues to deny SI and has been quite pleasant with staff. Pt was seen today to assess progress since admission. Pt states that he is doing well and denies any complaints. Pt states that he feels his time here has been productive and is appreciative of the treatment he has received. Pt states that he has not continued to have any suicidal or homicidal ideation since admission. He is agreeable with [facility]. We discussed aspects of patient's safety plan, especia aparna regarding any future contact with this female friend. Pt states "I see her all the time at work. If she's with her mom it's ok, but if I see her with another donovan...I don't know." Pt was asked to focus on what coping strategies he would be able to utilize at work in situations like this, as it will likely be different than coping strategies he could use at home in his free time. Pt did verbalize agreement with the need to know how he can handle these situations, but did not yet have any ideas. Pt states he is hoping to work with staff today to write down his safety plan. Pt denies other needs or concerns at this time. Physical Exam Psychiatric Orientation: alert, oriented x 3 and cooperative (friendly and very pleasant) Apperance: appropriately dressed, appropriately groomed and appeared stated age Eye Contact: good eye contact Motor Behavior: steady gait and station and no abnormal motor movements Speech: normal rate/rhythm/volume of speech Affect: euthymic affect (brightens appropriately) and mood congruent with affect Mood: no depressed mood ("I'm doing really good") Thought Process: goal directed thought process, clear/coherent thought process and + concrete thought process Thought Content: reality based without delusions; no hopelessness Suicidal Thoughts: denies suicidal thoughts and denies suicidal intent Homicidal Thoughts: denies homicidal thoughts Hallucinations: no auditory hallucinations and no visual hallucinations Cognition: recent memory grossly intact, attention grossly intact and language grossly intact Estimated Intelligence: + below average estimated intelligence Insight: + fair insight Judgement: + fair judgement Vital Signs (Past 24 Hours) Last Vital Signs Temp 36.4 C L 08/03/19 06:53 Pulse 73 08/03/19 06:54 Resp 18 08/03/19 06:53 BP 124/71 08/03/19 06:54 Pulse Ox 98 07/30/19 23:33 Results & Data ([facility]) Current Inpatient Medications Current Inpatient Medications: Current Inpatient Medications Acetaminophen (Tylenol) 650 mg PO Q4H PRN PRN Reason: Headache or Minor Fever Stop: 08/30/19 00:06 Al Hydrox/Mg Hydrox/Simethicone (Maalox) 30 ml PO Q4H PRN PRN Reason: GI Upset Stop: 08/30/19 00:06 Bismuth Subsalicylate (Kaopectate) 15 ml PO PRN PRN PRN Reason: Loose Stool Stop: 08/30/19 00:06 Hydroxyzine HCl (Vistaril) 50 mg PO HSZ PRN PRN Reason: Insomnia Stop: 08/30/19 00:06 Hydroxyzine HCl (Vistaril) 25 mg PO Q4H PRN PRN Reason: Anxiety Stop: 08/30/19 00:06 Magnesium Hydroxide (Milk Of Magnesia) 30 ml PO DAILY PRN PRN Reason: Constipation Stop: 08/30/19 00:06 Sertraline HCl (Zoloft) 50 mg PO QAM NAREN Stop: 08/30/19 10:14 Last Admin: 08/03/19 07:50 Dose: 50 mg Documented by: Sodium Chloride ([place] Nasal) 1 - 2 sprays NA PRN PRN PRN Reason: Nasal Dryness/Congestion Stop: 08/30/19 00:06 Mental Health & Subst Abuse Tx Psychiatrist Name of Psychiatrist: Lelo Mccracken Psychiatrist's Therapist Name of Therapist: Sung Therapist's Encoding Machine Operator Name of Encoding Machine Operator: None
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
[2019-08-04] MEDS: SERTRALINE HCL 50 MG TABLET PO SCH (08:50)
== END 2019-08-04 13:10 | disposition home or self-care (01) | DRG 885 ==
LOC: ED 17:53 → 3S 22:24 → SUATTDRO 22:24 → 3S 22:35